=== PATIENT | male | born 1950 | race Caucasian/White ===

== ENCOUNTER 2016-09-24 05:15 | Day surgery (SDC) | payer BC, MEDICARE ==
[~2016-09-24 05:15] MED LIST: ASPIRIN81 M1 PO; PANTOPRAZOLE SO40 M3 PO; TRICOR145 M2 PO; ULTRAM50 M1 PO
== END 2016-09-24 12:30 ==
LOC: SHSB 05:15 → ORW 07:33 → PACU 08:52 → SHSB 09:19
PROC: 0YU54JZ Supplement Right Inguinal Region with Synthetic Substitute, Percutaneous Endoscopic Approach (ICD-10-PCS; principal; 2016-09-24)
DX: K40.90 Unilateral inguinal hernia, without obstruction or gangrene, not specified as recurrent (principal); I25.10 Atherosclerotic heart disease of native coronary artery without angina pectoris; K21.9 Gastro-esophageal reflux disease without esophagitis; Z87.891 Personal history of nicotine dependence; Z88.8 Allergy status to other drugs, medicaments and biological substances; Z90.49 Acquired absence of other specified parts of digestive tract; Z98.890 Other specified postprocedural states
CPT/HCPCS: C1781; J0690